=== PATIENT | male | born 1990 | race Caucasian/White ===

== ENCOUNTER 2021-04-10 11:52 | Inpatient (IN) | payer BC ==
[~2021-04-10] VITALS: Ht 177.8 cm; Wt 103.7 kg
[2021-04-10 14:31] LABS: BASOPHILS # (AUTO) 0.1 X10'3 (0-0.2); BASOPHILS % (AUTO) 0.5 % (0-1); EOSINOPHILS # (AUTO) 0.1 X10'3 (0-0.9); EOSINOPHILS % (AUTO) 0.7 % (0-6); HEMATOCRIT 44.6 % (42.0-52.0); HEMOGLOBIN 15.3 g/dl (14.0-17.9); LYMPHOCYTES # (AUTO) 1.2 X10'3 (1.1-4.8); LYMPHOCYTES % (AUTO) 10.6 % (21-51); MEAN CORPUSCULAR HEMOGLOBIN 31.8 PG (27.0-31.0); MEAN CORPUSCULAR HGB CONC 34.2 g/dL (33.0-36.5); MEAN CORPUSCULAR VOLUME 93.1 FL (78-98); MEAN PLATELET VOLUME 8.6 FL (7.4-10.4); MONOCYTES # (AUTO) 1.4 X10'3 (0-0.9); MONOCYTES % (AUTO) 12.1 % (2-12); NEUTROPHILS # (AUTO) 8.8 X10'3 (1.8-7.7); NEUTROPHILS % (AUTO) 76.1 % (42-75); PLATELET COUNT 232 X10'3 (140-440); RED BLOOD COUNT 4.79 X10'6 (4.70-6.10); RED CELL DISTRIBUTION WIDTH 12.4 % (11.5-14.5); WHITE BLOOD COUNT 11.6 X10'3 (4.5-11.0)
--- NOTE | 2021-04-10 14:37 | NUR ---
TO CT SCAN
--- NOTE | 2021-04-10 14:48 | NUR ---
Destiny restrepo in [facility] - 04/10/21 at [address] scan
[2021-04-10 14:53] LABS: ALANINE AMINOTRANSFERASE 188 U/L (12-78); ALBUMIN 4.2 G/DL (3.4-5.0); ALBUMIN/GLOBULIN RATIO 1.1 (1.1-1.5); ALKALINE PHOSPHATASE 75 IU/L (46-116); ANION GAP 10 (8-16); ASPARTATE AMINO TRANSFERASE 68 U/L (10-37); BILIRUBIN,TOTAL 1.1 MG/DL (0.1-1.0); BLOOD UREA NITROGEN 11 MG/DL (7-18); BUN/CREATININE RATIO 11.1 (5.4-32.0); CALCIUM 9.2 MG/DL (8.5-10.1); CHLORIDE 103 MMOL/L (99-107); CREATININE 0.99 MG/DL (0.60-1.10); GLUCOSE 120 MG/DL (70-104); LIPASE 66 U/L (73-393); POTASSIUM 3.9 MMOL/L (3.5-5.1); SODIUM 140 MMOL/L (135-145); TOTAL CARBON DIOXIDE 27.5 MMOL/L (24-32); TOTAL PROTEIN 8.1 G/DL (6.4-8.2); eGFR 89 ML/MIN
[2021-04-10 15:12] LABS: CLARITY,URINE CLEAR (Clear); GLUCOSE, URINE NEGATIVE (Neg); KETONES,URINE NEGATIVE (Neg); LEUKOCYTE ESTERASE ,URINE NEGATIVE (Neg); NITRITES, URINE NEGATIVE (Neg); OCCULT BLOOD,URINE NEGATIVE (Neg); PH,URINE 7.5 (4.8-8.0); PROTEIN,URINE NEGATIVE (Neg)
[2021-04-10 15:14] LABS: COLOR,URINE DARK YELLOW (Yellow); UA COLLECTION TYPE URINAL
[2021-04-10] MEDS ORDERED: morphine 4 MG/ML inj SYRINge IV ONE ×2 (15:15→16:35)
[2021-04-10] MEDS ORDERED: normal saline 1000ML IV soln IVB ONE (15:15)
[2021-04-10] MEDS ORDERED: ondansetron/PF 4mg/2ml inj IV ONE (15:15)
--- NOTE | 2021-04-10 15:21 | NUR ---
LAST LIQUID AT 1100 WATER LAST FOOD AT 2230 04/08/21
[2021-04-10] MEDS ORDERED: piperacillin/tazo 3.375gm/50ml 50 ML IV ONE (15:25)
[2021-04-10] MEDS ORDERED: NO HOME MEDS (15:46)
[2021-04-10] MEDS ORDERED: mag hydrox/Alum hydrox/simeth 30ml oral suspension PO PRN (15:50)
[2021-04-10] MEDS ORDERED: magnesium 2GM in 50ml NS 50 ML IV PRN (15:50)
[2021-04-10] MEDS ORDERED: diphenhydrAMINE 25mg capsule PO PRN (15:50)
[2021-04-10] MEDS ORDERED: magnesium 4gm in 100ml NS 100 ML IV PRN (15:50)
[2021-04-10] MEDS ORDERED: magnesium Cl slow-release 64mg tablet PO PRN (15:50)
[2021-04-10] MEDS ORDERED: morphine 2 MG/ML inj. syringe IV PRN ×3 (15:50→15:55)
[2021-04-10] MEDS ORDERED: potassium Cl 20 mEq SR tablet PO PRN ×2 (15:50)
[2021-04-10] MEDS ORDERED: acetaminophen 650mg rectal suppository RC PRN (15:50)
[2021-04-10] MEDS ORDERED: acetaminophen 325mg tablet PO PRN ×2 (15:50)
[2021-04-10] MEDS ORDERED: magnesium hydroxide 30ml (MOM) UD suspension PO PRN (15:50)
[2021-04-10] MEDS ORDERED: bisacodyl 10mg suppository rectal RC PRN (15:50)
[2021-04-10] MEDS ORDERED: HYDROcodone/acetaminophen 5mg/325mg tablet PO PRN ×2 (15:50→18:45)
[2021-04-10] MEDS ORDERED: potassium Cl 40MEQ/1/2NS 520ml 520 ML IV PRN ×2 (15:50)
[2021-04-10] MEDS ORDERED: normal saline 1000ml 1,000 ML IV SCH (15:50)
[2021-04-10] MEDS ORDERED: HYDROcodone/acetaminophen 10/325mg tab PO PRN ×2 (15:50→18:45)
[2021-04-10] MEDS ORDERED: ondansetron/PF 4mg/2ml inj IV PRN ×2 (15:50→15:55)
[2021-04-10] MEDS ORDERED: fentaNYL/PF 50MCG/1 ML 2ML syringe IV PRN ×2 (15:55)
[2021-04-10] MEDS ORDERED: morphine 4 MG/ML inj SYRINge IV PRN (15:55)
[2021-04-10] MEDS ORDERED: ringers solution, lacted 1,000 ML IV SCH (15:55)
[2021-04-10] MEDS ORDERED: labetalol 20mg/4ml (5mg/ml) syringe IV PRN (15:55)
[2021-04-10] MEDS ORDERED: hydrALAZINE 20mg/ml inj. IV PRN (15:55)
[2021-04-10] MEDS ORDERED: piperacillin/tazo 3.375gm/50ml 50 ML IV SCH (16:00)
--- NOTE | 2021-04-10 16:11 | NUR ---
DR MORRISON AT BEDSIDE
[2021-04-10 16:31] LABS: HEMOGLOBIN A1C 5.6 % (4.5-6.2)
--- NOTE | 2021-04-10 16:36 | NUR ---
phone report to slick guillen
[2021-04-10] MEDS ORDERED: fentaNYL/PF 50MCG/1 ML 2ML syringe ONE (16:46)
[2021-04-10] MEDS ORDERED: MIDAZolam 1 MG/ML 5ML VIAL ONE (16:46)
[2021-04-10] MEDS ORDERED: rocuronium 10mg/ml inj IV ONE (16:47)
[2021-04-10] MEDS ORDERED: neostigmine methylsulfate 1 MG/ML 10ml vial ONE (16:47)
[2021-04-10] MEDS ORDERED: glycopyrrolate 0.2mg/ml inj ONE (16:47)
[2021-04-10] MEDS ORDERED: ondansetron/PF 4mg/2ml inj ONE (16:47)
[2021-04-10] MEDS ORDERED: propofol inj 20 ML IV ONE (16:47)
[2021-04-10] MEDS ORDERED: LIDOcaine 2% (20mg/ml) 5ml vial ONE (16:48)
[2021-04-10] MEDS ORDERED: BUPIVAcaine/PF 2.5 mg/ml (0.25%) 30ml vial ONE (17:02)
[2021-04-10] MEDS ORDERED: LIDOcaine 1% 30ml preserv. free vial ONE (17:02)
[2021-04-10 17:09] LABS: PARTIAL THROMBOPLASTIN TIME 27 SECONDS (22-32)
--- NOTE | 2021-04-10 17:11 | NUR ---
TO OR WITH CREW
[2021-04-10] MEDS ORDERED: labetalol 20mg/4ml (5mg/ml) syringe IV ONE ×2 (17:15→17:48)
[2021-04-10] MEDS ORDERED: sevoflurane 250ml liquid IH ONE (17:15)
[2021-04-10] MEDS ORDERED: dexamethasone sod phosphate 10mg/ml inj ONE (17:15)
[2021-04-10 18:25] VITALS: BP 110/74
--- NOTE | 2021-04-10 18:25 | NUR ---
Received from OR via CELINE, accompanied by Anesthesiologist PATSY and report given by Anesthesiolgist. PT FROWSY, OXYGENATING WELL ON 10 LPM 02 VIA MASK, NO RESP DISTRESS NOTED. PT DENIES NAUSEA, C/O MILD INCISIONAL PAIN. WILL MEDICATE PRN, SEE EMAR. 3 LARGE BANDAIDS TO ABD TROCAR SITES, CDI. VSS.
[2021-04-10 18:35] VITALS: BP 104/73
[2021-04-10 18:45] VITALS: BP 118/70
[2021-04-10 18:55] VITALS: BP 100/72
[2021-04-10 19:05] VITALS: BP 114/74
[2021-04-10 19:15] VITALS: BP 115/69
[2021-04-10] MEDS ORDERED: K and/or MAG REPLACEMENT MC SCH (20:00)
[2021-04-10] MEDS ORDERED: heparin, porcine 5000 units/ml vial SQ SCH (20:00)
--- NOTE | 2021-04-10 20:10 | NUR ---
DC INSTRUCTIONS EXPLAINED TO PT, HE VERBALIZED UNDERSTANDING. COPY PROVIDED FOR PT. PAIN LEVEL TRENDING DOWN AFTER IVP MORPHINE GIVEN. PT DECLINED PO MEDS AT THIS TIME. VSS. TOLERATING PO FLUIDS WELL. DCD IN STABLE CONDITION, TAKEN TO CAR VIA WC.
== END 2021-04-10 20:10 | disposition home or self-care (01) | DRG 342 ==
LOC: ER 11:54 → ED HOLD 15:49 → PACU 18:25
PROVIDERS: ADMIT Family Medicine; ATTEND Family Medicine
PROC: 0WQF0ZZ Repair Abdominal Wall, Open Approach (ICD-10-PCS; 2021-04-10)
PROC: 8E0W4CZ Robotic Assisted Procedure of Trunk Region, Percutaneous Endoscopic Approach (ICD-10-PCS; 2021-04-10)
PROC: 0DTJ4ZZ Resection of Appendix, Percutaneous Endoscopic Approach (ICD-10-PCS; principal; 2021-04-10 17:15)
DX: K35.30 Acute appendicitis with localized peritonitis, without perforation or gangrene (principal); K42.0 Umbilical hernia with obstruction, without gangrene; F10.11 Alcohol abuse, in remission; F14.11 Cocaine abuse, in remission; Z20.822 Contact with and (suspected) exposure to COVID-19; Z87.891 Personal history of nicotine dependence
CPT/HCPCS: 36415; 74176; 80053; 81003; 83036; 83605; 83690; 85025; 85610; 85730; 86885; 86900; 86901; 87040; 87635; 96365; 96375; 99285; A4215; A4618; C9803; J1100; J2001; J2250; J2270; J2405; J2543; J2704; J2710; J3010; J3490; J7030; J7120

== ENCOUNTER 2022-04-09 02:18 | Emergency (ER) | payer BC ==
[~2022-04-09] VITALS: Ht 177.8 cm; Wt 100.0 kg
[~2022-04-09 02:18] MED LIST: NO HOME MEDS
[2022-04-09] MEDS ORDERED: TETanus/Pertussis (Acell)/Diphther VAC/PF (Tdap-Adult) 0.5ml syringe IMVAC ONE (02:55)
[2022-04-09] MEDS ORDERED: LIDOcaine 1% 30ml preserv. free vial IJ ONE (02:55)
[2022-04-09 04:26] VITALS: BP 138/82
[2022-04-09] MEDS ORDERED: HYDR-3965 PO (04:55)
== END 2022-04-09 04:28 | disposition home or self-care (01) ==
LOC: ER 02:19
DX: S62.336A Displaced fracture of neck of fifth metacarpal bone, right hand, initial encounter for closed fracture (principal); S61.411A Laceration without foreign body of right hand, initial encounter; S61.214A Laceration without foreign body of right ring finger without damage to nail, initial encounter; W26.8XXA Contact with other sharp object(s), not elsewhere classified, initial encounter; Y93.89 Activity, other specified; Y92.89 Other specified places as the place of occurrence of the external cause; Y99.8 Other external cause status
CPT/HCPCS: 12002; 73130; 90471; 90715; 99284